=== PATIENT | female | born 1960 | race Caucasian/White ===

== ENCOUNTER 2017-06-13 12:30 | Emergency (ER) | payer OTHER ==
--- NOTE | 2017-06-13 12:36 | ER Report ---
History and Physical Time Seen By MD: 12:35 HPI/ROS CHIEF COMPLAINT: Left clavicle pain HISTORY OF PRESENT ILLNESS: Patient is a 56-year-old female who was skiing experience dysuria. She tried to do a stop and ended up landing on her left shoulder. She is complaining of pain to the left clavicle area. She denies any numbness or tingling. She denies head injury or other injury at this time. Pain is 10 out of 10 in intensity. Made worse with any motion of the left shoulder. REVIEW OF SYSTEMS: Respiratory: No cough, no dyspnea. Cardiovascular: No chest pain, no palpitations. Gastrointestinal: No vomiting, no abdominal pain. Musculoskeletal: No back pain. Left clavicle pain Allergies: Coded Allergies: No Known Drug Allergies (Unverified , 06/13/17) Home Meds Reported Medications Atorvastatin Calcium (ATORVASTATIN CALCIUM) 20 Mg Tablet, 1 TAB PO QDAY, TAB 06/13/17 Losartan/Hydrochlorothiazide (LOSARTAN-HCTZ 100-12.5 MG TAB) 1 Each Tablet, 1 EACH PO QDAY 06/13/17 Constitutional Vital Sign - Last 24 Hours 06/13/17 12:41 Temp 98.4 Pulse 89 Resp 18 B/P (MAP) 161/102 Pulse Ox 92 O2 Delivery Room Air Physical Exam General Appearance: The patient is alert, has no immediate need for airway protection and no current signs of toxicity. Eyes: Pupils equal and round no injection. Respiratory: Chest is non tender, lungs are clear to auscultation. Cardiac: regular rate and rhythm Gastrointestinal: Abdomen is soft and non tender, no masses, bowel sounds normal. Musculoskeletal: Neck: Neck is supple and non tender. Extremities: Patient has tenderness over the middle 3rd of the left clavicle. She has pain with ab duction of the left shoulder. There is no proximal humerus tenderness there is no distal humerus tenderness she has normal range of motion to the left hand. Sensation is intact to the left hand. Is no tenting of the skin over the left clavicle there is no vascular changes to the skin overlying the left clavicle area. Skin: No rashes or lesions. Medical Decision Making ED Course/Re-evaluation ED Course Plan at this time will be to place an IV for pain relief we will give IV Zofran and IV fentanyl. We will obtain an x-ray of the left clavicle. Decision to Disposition Date: Jun 13, 2017 Decision to Disposition Time: 13:51 Depart Departure Latest Vital Signs Vital Signs Date Time Temp Pulse Resp B/P (MAP) Pulse Ox O2 Delivery O2 Flow Rate FiO2 06/13/17 12:41 98.4 89 18 161/102 92 Room Air Impression: Primary Impression: Closed left clavicular fracture Condition: Improved Disposition: HOME OR SELF-CARE New Scripts Oxycodone Hcl/Acetaminophen (PERCOCET 5-325 MG TABLET) 1 Each Tablet 1-2 EACH PO Q6H for PAIN, #30 TAB 0 Refills Prov: KEVIN KINNEY MD 06/13/17 Patient Instructions: Clavicle Fracture (ED) Additional Instructions: Follow-up in [place] [facility] at [facility]. Call this Thursday morning for an appointment to schedule follow- up later this week for evaluation of her clavicle fracture to determine definitive care [address] [place] [id number] Problem Qualifiers Primary Impression: Closed left clavicular fracture Encounter type: initial encounter Clavicle location: shaft Fracture alignment: displaced Qualified Codes: S42.022A - Displaced fracture of shaft of left clavicle, initial encounter for closed fracture KEVIN KINNEY MD Jun 13, 2017 12:36
[2017-06-13 12:41] VITALS: BP 161/102
[2017-06-13] MEDS ORDERED: ONDANSETRON 4 MG/2 ML VIAL IVP ONE (12:45)
[2017-06-13] MEDS ORDERED: fentaNYL CITR 100 MCG/2 ML AMP IVP ONE (12:45)
[2017-06-13] MEDS ORDERED: LOSA-57 PO (12:47)
[2017-06-13] MEDS ORDERED: ATOR20TA65 PO (12:48)
--- NOTE | 2017-06-13 13:49 | RADIOLOGY IMAGING REPORT ---
FACILITY: [facility] PATIENT NAME: Felipa Resendez : 1960 MR: [id number] V: [id number] EXAM DATE: ORDERING PHYSICIAN: KEVIN KINNEY TECHNOLOGIST: Location: [facility] Patient: Felipa Resendez : 1960 Visit/Account:[id number] Date of Sevice: 06/13/2017 CLAVICLE LEFT COMPARISONS: None. ADDITIONAL PERTINENT HISTORY: Trauma FINDINGS: Osseous structures: Mildly comminuted, inferiorly displaced and mildly overridden fracture involving the mid left clavicle. Joint spaces: Negative. Surrounding soft tissues: Negative. IMPRESSION: 1. Mildly comminuted, inferiorly displaced and mildly overridden fracture involving the mid left clav icle. Report Dictated By: Enrrique Buckley MD at 06/13/2017 1:45 PM Report E-Signed By: Enrrique Buckley MD at 06/13/2017 1:46 PM WSN:[id number]
[2017-06-13] MEDS ORDERED: OXYC-865 PO (14:22)
== END 2017-06-13 13:58 | disposition home or self-care (01) ==
LOC: ER 12:46
DX: S42.022A Displaced fracture of shaft of left clavicle, initial encounter for closed fracture (principal); Y93.23 Activity, snow (alpine) (downhill) skiing, snowboarding, sledding, tobogganing and snow tubing
CPT/HCPCS: 73000; 96374; 96375; 99284; A4565; J2405; J3010